=== PATIENT | male | born 1990 | race Caucasian/White ===

== ENCOUNTER 2021-03-24 11:35 | Emergency (ER) | payer OTHER ==
[2021-03-24 11:41] VITALS: BP 109/68; PULSE 81; TEMP 98.2; BMI 27.1
[2021-03-24] MEDS ORDERED: KETOROLAC TROMETHAMINE 30 MG/1 ML VIAL IM ONE (13:10)
[2021-03-24] MEDS ORDERED: KETOROLAC TROMETHAMINE 30 MG/1 ML VIAL ONE (13:12)
== END 2021-03-24 13:35 | disposition home or self-care (01) ==
LOC: JERFT 11:35
PROC: 3E023GC Introduction of Other Therapeutic Substance into Muscle, Percutaneous Approach (ICD-10-PCS; principal; 2021-03-24)
DX: M25.562 Pain in left knee (principal)
CPT/HCPCS: 73562-TC-LT-FY; 99284-25